=== PATIENT | male | born 1955 | race Caucasian/White ===

== ENCOUNTER 2020-05-08 09:09 | Emergency (ER) | payer OTHER ==
[~2020-05-08] VITALS: Ht 157.5 cm; Wt 61.2 kg
[2020-05-08 09:09] VITALS: BP_SYST 148
--- NOTE | 2020-05-08 09:09 | NUR ---
PT PLACED I N BED 3, DR MORRISON AT BEDSIDE
--- NOTE | 2020-05-08 09:15 | NUR ---
12 LEAD EKG IN PROGRESS
--- NOTE | 2020-05-08 09:18 | NUR ---
POT ARRIVES FROM HOME VIA BLS W/ C/O SOB. PT REPORTS HX OF copd, ARRIVES W/ 4L nc CURRENT O2 SAT IS 94%. TRANSCRIPT EVALUATOR PLACED. WILL CONTINUE TO MONITOR
--- NOTE | 2020-05-08 09:19 | NUR ---
ER at bedside examining patient.
--- NOTE | 2020-05-08 09:20 | NUR ---
# 20 gauge angiocath placed to lac. Use of asceptic technique. Opsite placed over site. Blood return noted. Blood for lab drawn from site. Flushed with 10 cc of normal saline. No evidence of infiltration noted. Patient tolerated well.
[2020-05-08] MEDS ORDERED: methylPREDNISolone SOD SUCC/PF 62.5 MG/ML VIAL IVP ONE (09:30)
[2020-05-08] MEDS ORDERED: IPRATROPIUM/ALBUTEROL SULFATE 3 ML AMPUL.NEB (DUONEB) INH ONE (09:30)
[2020-05-08] MEDS ORDERED: MORPHINE 4 MG/ML INJ. SYRINGE IVP ONE (09:30)
[2020-05-08] MEDS ORDERED: MAGNESIUM SULFATE 50 ML IV ONE (09:30)
--- NOTE | 2020-05-08 10:00 | NUR ---
MEDICATED THE PT W/ TORADAL PER MD ORDER. WILL REASSESS
[2020-05-08 10:06] LABS: BASOPHILS # (AUTO) 0.1 K/uL (0.0-0.2); BASOPHILS % (AUTO) 0.6 % (0.0-2.0); EOSINOPHILS # (AUTO) 0.6 K/uL (0.0-0.4); EOSINOPHILS % (AUTO) 6.7 % (0.0-4.0); HEMATOCRIT 39.3 % (36-54); HEMOGLOBIN 12.8 g/dL (14.0-18.0); LYMPHOCYTES % (AUTO) 12.1 % (20.5-51.5); MEAN CORPUSCULAR HEMOGLOBIN 28 pg (27-31); MEAN CORPUSCULAR HGB CONC 32 % (32-36); MEAN CORPUSCULAR VOLUME 86 fL (79.0-98.0); MONOCYTES % (AUTO) 11.6 % (1.7-9.3); NEUTROPHILS # (AUTO) 5.9 K/uL (1.8-7.7); PLATELET COUNT (AUTO) 217 K/uL (130-430); RED BLOOD CELL COUNT(AUTO) 4.57 MIL/uL (4.2-6.2); RED CELL DISTRIBUTION WIDTH 16.5 % (9.0-15.0); WHITE BLOOD COUNT (AUTO) 8.6 K/uL (4.8-10.8)
[2020-05-08 10:18] LABS: CALCIUM 8.7 mg/dL (8.4-11.0); CREATININE 0.48 mg/dL (0.55-1.30); POTASSIUM 3.8 mmol/L (3.5-5.1)
[2020-05-08 10:22] LABS: INR 1.1 (0.80-1.20)
[2020-05-08 10:23] LABS: ALBUMIN 3.3 g/dL (3.4-4.8); TOTAL BILIRUBIN 0.5 mg/dL (0.0-1.0)
[2020-05-08] MEDS ORDERED: HYDROcodone/ACETAMIN 10-325 MG TAB PO ONE (11:45)
[2020-05-08 12:10] VITALS: BP_SYST 120
--- NOTE | 2020-05-08 12:10 | NUR ---
Patient given written and verbal discharge instructions and verbalizes understanding. ER MD discussed with patient the results and treatment provided. Patient in stable condition. ID arm band removed. IV catheter removed intact and dressing applied, no active bleeding. Rx of NAPROSYN given. Patient educated on pain management and to follow up with PMD. Pain Scale 0/10.Opportunity for questions provided and answered. Medication side effect fact sheet provided.
== END 2020-05-08 12:10 | disposition home or self-care (01) ==
LOC: SED 09:09
DX: S20.211A Contusion of right front wall of thorax, initial encounter (principal); I10 Essential (primary) hypertension; J44.9 Chronic obstructive pulmonary disease, unspecified; E11.9 Type 2 diabetes mellitus without complications; W18.39XA Other fall on same level, initial encounter; Y93.89 Activity, other specified; Y92.89 Other specified places as the place of occurrence of the external cause; Y99.8 Other external cause status
CPT/HCPCS: 36415; 36600; 71045; 71250; 80053; 82803; 85025; 85610; 85730; 87040; 93005; 94640; 96365; 96366; 96375; 99285; J2270; J2930; J3475

== ENCOUNTER 2020-11-09 16:14 | Emergency (ER) | payer OTHER, MEDICAID, SELFPAY ==
[~2020-11-09] VITALS: Ht 170.2 cm; Wt 68.0 kg
[2020-11-09 16:30] VITALS: BP_SYST 133
[2020-11-09 17:19] LABS: BASOPHILS % (AUTO) 0.2 % (0.0-2.0); EOSINOPHILS # (AUTO) 0.3 K/uL (0.0-0.4); EOSINOPHILS % (AUTO) 1.8 % (0.0-4.0); HEMATOCRIT 41.1 % (36-54); HEMOGLOBIN 13.4 g/dL (14.0-18.0); LYMPHOCYTES # (AUTO) 0.6 K/uL (1.0-5.5); LYMPHOCYTES % (AUTO) 3.9 % (20.5-51.5); MEAN CORPUSCULAR HEMOGLOBIN 31 pg (27-31); MEAN CORPUSCULAR HGB CONC 33 % (32-36); MEAN CORPUSCULAR VOLUME 94 fL (79.0-98.0); MONOCYTES # (AUTO) 1.6 K/uL (0.0-1.0); MONOCYTES % (AUTO) 9.9 % (1.7-9.3); NEUTROPHILS # (AUTO) 13.6 K/uL (1.8-7.7); NEUTROPHILS % (AUTO) 84.2 % (40.0-70.0); PLATELET COUNT (AUTO) 155 K/uL (130-430); RED BLOOD CELL COUNT(AUTO) 4.37 MIL/uL (4.2-6.2); RED CELL DISTRIBUTION WIDTH 15.5 % (9.0-15.0); WHITE BLOOD COUNT (AUTO) 16.1 K/uL (4.8-10.8)
[2020-11-09 17:40] LABS: ALANINE AMINOTRANSFERASE 51 U/L (12-78); ASPARTATE AMINOTRANSFERASE 44 U/L (10-37); CALCIUM 9.5 mg/dL (8.4-11.0); CHLORIDE 100 mmol/L (98-107); GLUCOSE 210 mg/dL (70-99); POTASSIUM 5.3 mmol/L (3.5-5.1); SODIUM SERUM 142 mmol/L (136-145); TOTAL BILIRUBIN 0.4 mg/dL (0.0-1.0); UREA NITROGEN, BLOOD 34 mg/dL (8-21)
[2020-11-09 17:50] LABS: ANION GAP < 3 (5-15); CREATININE 0.69 mg/dL (0.55-1.30); GFR AFRICAN AMERICAN 148 mL/min (>90)
[2020-11-09] MEDS ORDERED: FUROSEMIDE 20 MG/2 ML VIAL IVP ONE (18:00)
[2020-11-09] MEDS ORDERED: KETOROLAC TROMETHAMINE 30 MG VIAL IVP ONE (18:30)
[2020-11-09] MEDS ORDERED: KETOROLAC TROMETHAMINE 30 MG VIAL ONE (18:49)
[2020-11-10] MEDS ORDERED: IPRATROPIUM/ALBUTEROL SULFATE 3 ML AMPUL.NEB (DUONEB) ONE (05:27)
[2020-11-10] MEDS ORDERED: IPRATROPIUM/ALBUTEROL SULFATE 3 ML AMPUL.NEB (DUONEB) INH ONE (05:30)
[2020-11-10 08:30] VITALS: BP_SYST 127
== END 2020-11-10 08:30 | disposition home or self-care (01) ==
LOC: SED 16:14
DX: R07.89 Other chest pain (principal); I11.0 Hypertensive heart disease with heart failure; I50.9 Heart failure, unspecified; J44.9 Chronic obstructive pulmonary disease, unspecified; E11.9 Type 2 diabetes mellitus without complications; Z20.822 Contact with and (suspected) exposure to COVID-19
CPT/HCPCS: 36415; 71045 ×2; 80053; 82550; 83880; 84484; 85025; 87040; 87426; 93005; 94640; 96374; 96375; 99285; J1885; J1940